=== PATIENT | male | born 1990 | race African-American/Black ===

== ENCOUNTER 2017-12-18 07:25 | Day surgery (SDC) | payer MEDICAID ==
[~2017-12-18] VITALS: Ht 182.9 cm; Wt 111.0 kg
[2017-12-18] VITALS (11 sets, daily range): BP systolic 98–128; BP diastolic 45–86
[~2017-12-18 07:25] MED LIST: Cefazolin 2GM/100ML NS IVPB IV ONE; LIDOcaine 1% (10mg/ml) 2ml vial ONE; METH-350 PO; famotidine 20mg tablet PO ONE; ringers solution, lacted 1,000 ML IV SCH
[2017-12-18 08:19] LABS: BASOPHILS # (AUTO) 0.1 X10'3 (0-0.2); BASOPHILS % (AUTO) 1.4 % (0-1); EOSINOPHILS # (AUTO) 0.2 X10'3 (0-0.9); EOSINOPHILS % (AUTO) 3.1 % (0-6); LYMPHOCYTES # (AUTO) 1.9 X10'3 (1.1-4.8); LYMPHOCYTES % (AUTO) 39.2 % (21-51); MEAN CORPUSCULAR HEMOGLOBIN 30.5 PG (27.0-31.0); MEAN CORPUSCULAR HGB CONC 34.7 % (33.0-36.5); MEAN CORPUSCULAR VOLUME 88.1 FL (78-98); MEAN PLATELET VOLUME 9.1 FL (7.4-10.4); MONOCYTES # (AUTO) 0.5 X10'3 (0-0.9); NEUTROPHILS # (AUTO) 2.3 X10'3 (1.8-7.7); NEUTROPHILS % (AUTO) 46.3 % (42-75); PRE OP HEMATOCRIT 41.5 % (42.0-52.0); PRE OP HEMOGLOBIN 14.4 g/dL (14.0-17.9); PRE OP PLATELET COUNT 211 X10'3 (140-440); RED BLOOD COUNT 4.71 X10'6 (4.70-6.10); RED CELL DISTRIBUTION WIDTH 14.6 % (11.5-14.5)
[2017-12-18] MEDS ORDERED: povidone-iodine 10% topical ointment 28.4gm TP ONE (08:24)
[2017-12-18] MEDS ORDERED: ROPIVAcaine 0.5% (5mg/ml) 30ml vial ONE (08:24)
[2017-12-18 08:32] LABS: ALBUMIN 3.6 G/DL (3.4-5.0); ALBUMIN/GLOBULIN RATIO 1.1 (1.1-1.5); ALKALINE PHOSPHATASE 74 IU/L (46-116); BLOOD UREA NITROGEN 15 MG/DL (7-18); CALCIUM 8.8 MG/DL (8.5-10.1); CHLORIDE 106 MMOL/L (99-107); PRE OP ANION GAP 10 (8-16); PRE OP AST 65 U/L (10-37); PRE OP BILIRUB, TOTAL 0.3 MG/DL (0.0-1.0); PRE OP GLUCOSE 122 MG/DL (70-104); PRE OP POTASSIUM 3.8 MMOL/L (3.4-5.1); PRE OP SODIUM 142 MMOL/L (135-145); TOTAL CARBON DIOXIDE 25.9 MMOL/L (24-32); eGFR > 90 ML/MIN
[2017-12-18 08:34] LABS: PRE OP ALT 82 U/L (30-65)
[2017-12-18] MEDS ORDERED: midazolam 2 mg/2 ml injection ONE (09:42)
[2017-12-18] MEDS ORDERED: fentaNYL /PF 50mcg/ml 5ml ampule ONE (09:42)
[2017-12-18 09:56] LABS: CLARITY,URINE CLEAR (Clear); COLOR,URINE YELLOW (Yellow); GLUCOSE, URINE NEGATIVE (Neg); KETONES,URINE TRACE mg/dl (Neg); LEUKOCYTE ESTERASE ,URINE NEGATIVE (Neg); NITRITES, URINE NEGATIVE (Neg); OCCULT BLOOD,URINE TRACE-INTACT (Neg); PROTEIN,URINE NEGATIVE (Neg)
[2017-12-18 10:01] LABS: UA COLLECTION TYPE CLN CATCH MIDSTREAM
[2017-12-18 10:03] LABS: BACTERIA,URINE NONE SEEN /HPF (Neg); RBC,URINE 0-2 /HPF (0-2); WBC,URINE 0-4 /HPF (0-4)
[2017-12-18 10:04] LABS: MUCUS STRANDS FEW /LPF (Neg); SQUAMOUS EPITHELIAL CELL,UR NONE SEEN /LPF (FEW)
[2017-12-18] MEDS ORDERED: dexamethasone sod phosphate 4mg/ml inj. ONE (10:16)
[2017-12-18] MEDS ORDERED: rocuronium 10mg/ml inj IV ONE ×2 (10:16→11:30)
[2017-12-18] MEDS ORDERED: propofol inj 20 ML IV ONE ×2 (10:16→11:30)
[2017-12-18] MEDS ORDERED: LIDOcaine 2% (20mg/ml) 5ml vial ONE (10:16)
[2017-12-18] MEDS ORDERED: ondansetron/PF 4mg/2ml inj ONE ×2 (10:16→11:30)
[2017-12-18] MEDS ORDERED: methylene blue (5mg/ml) 50mg/10ml ampul IV ONE (10:17)
[2017-12-18] MEDS ORDERED: ringers solution, lacted 1,000 ML IV ONE (10:18)
[2017-12-18] MEDS ORDERED: morphine 4 MG/ML inj SYRINge IV PRN ×2 (10:20)
[2017-12-18] MEDS ORDERED: hydrALAZINE 20mg/ml inj. IV PRN (10:20)
[2017-12-18] MEDS ORDERED: meperidine/PF 25mg/ml syringe IV PRN ×3 (10:20)
[2017-12-18] MEDS ORDERED: ondansetron/PF 4mg/2ml inj IV PRN (10:20)
[2017-12-18] MEDS ORDERED: labetalol 20mg/4ml (5mg/ml) syringe IV PRN (10:20)
[2017-12-18] MEDS ORDERED: neostigmine methylsulfate 1 MG/ML 10ml vial ONE (10:29)
[2017-12-18] MEDS ORDERED: glycopyrrolate 0.2mg/ml inj ONE (10:29)
[2017-12-18] MEDS ORDERED: ePHEDrine 50MG/ML INJ. ONE (11:30)
[2017-12-18] MEDS ORDERED: LIDOcaine 1%/PF (10mg/ml) 5ml vial ONE (11:31)
== END 2017-12-18 12:10 | disposition home or self-care (01) ==
LOC: PAS 07:25
PROVIDERS: ATTEND Surgery
DX: L05.91 Pilonidal cyst without abscess (principal); F90.9 Attention-deficit hyperactivity disorder, unspecified type; F17.210 Nicotine dependence, cigarettes, uncomplicated
CPT/HCPCS: 11771; 36415; 80053; 81001; 85025; A6266; A6449; J0690; J1100; J2001; J2250; J2405; J2704; J2710; J2795; J3010; J3490; J7120; A7000

== ENCOUNTER 2017-12-21 09:00 | Outpatient (CLI) | payer MEDICAID ==
[~2017-12-21 09:00] MED LIST changes: -Cefazolin 2GM/100ML NS IVPB IV ONE; -LIDOcaine 1% (10mg/ml) 2ml vial ONE; -famotidine 20mg tablet PO ONE; -ringers solution, lacted 1,000 ML IV SCH
[2017-12-21] MEDS ORDERED: LIDOcaine 2% 5ml jelly ONE (10:06)
[2017-12-21] MEDS ORDERED: HYDR-3965 PO (10:28)
== END 2017-12-21 10:33 | disposition home or self-care (01) ==
LOC: WOUND CARE 09:00 → EDSTATUS 09:00 → WOUND CARE 10:33
PROVIDERS: ATTEND Surgery
DX: T81.89XA Other complications of procedures, not elsewhere classified, initial encounter (principal); L98.492 Non-pressure chronic ulcer of skin of other sites with fat layer exposed; F98.8 Other specified behavioral and emotional disorders with onset usually occurring in childhood and adolescence; F17.210 Nicotine dependence, cigarettes, uncomplicated; Y83.8 Other surgical procedures as the cause of abnormal reaction of the patient, or of later complication, without mention of misadventure at the time of the procedure
CPT/HCPCS: 99215; A6266

== ENCOUNTER 2017-12-24 10:59 | Outpatient (CLI) | payer MEDICAID ==
[~2017-12-24 10:59] MED LIST changes: +HYDR-3965 PO; -METH-350 PO
[2017-12-24] MEDS ORDERED: LIDOcaine 2% 5ml jelly ONE (11:22)
== END 2017-12-24 11:49 | disposition home or self-care (01) ==
LOC: WOUND CARE 10:59 → EDSTATUS 11:00 → WOUND CARE 11:49
PROVIDERS: ATTEND Surgery
DX: T81.89XD Other complications of procedures, not elsewhere classified, subsequent encounter (principal); L98.492 Non-pressure chronic ulcer of skin of other sites with fat layer exposed; F98.8 Other specified behavioral and emotional disorders with onset usually occurring in childhood and adolescence; F17.210 Nicotine dependence, cigarettes, uncomplicated; Y83.8 Other surgical procedures as the cause of abnormal reaction of the patient, or of later complication, without mention of misadventure at the time of the procedure
CPT/HCPCS: 99215; A6021

== ENCOUNTER 2017-12-27 09:34 | Outpatient (CLI) | payer MEDICAID ==
[2017-12-27] MEDS: LIDOcaine 2% 5ml jelly ONE (10:12)
== END 2017-12-27 10:51 | disposition home or self-care (01) ==
LOC: WOUND CARE 09:34
PROVIDERS: ATTEND Surgery
DX: T81.89XD Other complications of procedures, not elsewhere classified, subsequent encounter (principal); L98.492 Non-pressure chronic ulcer of skin of other sites with fat layer exposed; F98.8 Other specified behavioral and emotional disorders with onset usually occurring in childhood and adolescence; F17.210 Nicotine dependence, cigarettes, uncomplicated; Y83.8 Other surgical procedures as the cause of abnormal reaction of the patient, or of later complication, without mention of misadventure at the time of the procedure
CPT/HCPCS: 99211; A6266

== ENCOUNTER 2017-12-31 08:35 | Day surgery (SDC) | payer MEDICAID | END 2017-12-31 10:15 | disposition home or self-care (01) | LOC: WOUND CARE 08:35 | PROVIDERS: ATTEND Surgery | DX: T81.89XD Other complications of procedures, not elsewhere classified, subsequent encounter (principal); L98.492 Non-pressure chronic ulcer of skin of other sites with fat layer exposed; F98.8 Other specified behavioral and emotional disorders with onset usually occurring in childhood and adolescence; F17.210 Nicotine dependence, cigarettes, uncomplicated; Y83.8 Other surgical procedures as the cause of abnormal reaction of the patient, or of later complication, without mention of misadventure at the time of the procedure | CPT/HCPCS: 97597; A6021 ==

== ENCOUNTER 2018-01-10 10:05 | Day surgery (SDC) | payer MEDICAID ==
[2018-01-10] MEDS ORDERED: LIDOcaine 2% 5ml jelly ONE (11:01)
== END 2018-01-10 11:13 | disposition home or self-care (01) ==
LOC: WOUND CARE 10:05
PROVIDERS: ATTEND Surgery
DX: T81.89XD Other complications of procedures, not elsewhere classified, subsequent encounter (principal); L98.492 Non-pressure chronic ulcer of skin of other sites with fat layer exposed; F98.8 Other specified behavioral and emotional disorders with onset usually occurring in childhood and adolescence; F17.210 Nicotine dependence, cigarettes, uncomplicated; Y83.8 Other surgical procedures as the cause of abnormal reaction of the patient, or of later complication, without mention of misadventure at the time of the procedure
CPT/HCPCS: 17250; A6021

== ENCOUNTER 2018-04-05 20:49 | Emergency (ER) | payer MEDICAID ==
[~2018-04-05] VITALS: Ht 182.9 cm; Wt 113.9 kg
[2018-04-05 20:56] VITALS: BP 108/34
== END 2018-04-05 22:32 | disposition left against medical advice (07) ==
LOC: ER 20:49
DX: R20.0 Anesthesia of skin (principal); Z53.21 Procedure and treatment not carried out due to patient leaving prior to being seen by health care provider
CPT/HCPCS: 73130

== ENCOUNTER 2018-04-06 12:33 | Emergency (ER) | payer MEDICAID ==
[~2018-04-06] VITALS: Ht 647.4 cm; Wt 115.3 kg
[2018-04-06 12:36] VITALS: BP 113/66
== END 2018-04-06 13:20 | disposition home or self-care (01) ==
LOC: ER 12:34
DX: G56.01 Carpal tunnel syndrome, right upper limb (principal); G89.29 Other chronic pain; M54.9 Dorsalgia, unspecified
CPT/HCPCS: 29125; 99283

== ENCOUNTER 2018-12-29 21:39 | Emergency (ER) | payer MEDICAID ==
[~2018-12-29] VITALS: Ht 182.9 cm; Wt 115.0 kg
[2018-12-29 21:58] VITALS: BP 153/114
[2018-12-29] MEDS ORDERED: CEPH500C5 PO (22:42)
[2018-12-29] MEDS ORDERED: cephalexin 250mg capsule PO ONE (22:45)
== END 2018-12-29 22:55 | disposition home or self-care (01) ==
LOC: ER 21:40
DX: S61.201A Unspecified open wound of left index finger without damage to nail, initial encounter (principal); L03.012 Cellulitis of left finger; G89.29 Other chronic pain; Z88.0 Allergy status to penicillin; Z88.8 Allergy status to other drugs, medicaments and biological substances; Z79.899 Other long term (current) drug therapy; X58.XXXA Exposure to other specified factors, initial encounter; Y93.89 Activity, other specified; Y92.89 Other specified places as the place of occurrence of the external cause; Y99.8 Other external cause status
CPT/HCPCS: 99283

== ENCOUNTER 2019-01-29 22:05 | Emergency (ER) | payer MEDICAID ==
[~2019-01-29 22:05] MED LIST changes: +CEPH500C5 PO
== END 2019-01-29 23:07 | disposition left against medical advice (07) ==
LOC: ER 22:06
DX: M25.559 Pain in unspecified hip (principal); Z53.21 Procedure and treatment not carried out due to patient leaving prior to being seen by health care provider

== ENCOUNTER 2019-02-01 08:54 | Emergency (ER) | payer MEDICAID ==
[~2019-02-01] VITALS: Ht 190.5 cm; Wt 110.9 kg
[2019-02-01] MEDS ORDERED: ketorolac trometh inj. 60 MG/2 ML VIAL IM ONE (09:25)
[2019-02-01] MEDS ORDERED: CYCL-1 PO (10:03)
[2019-02-01 10:25] VITALS: BP 114/84
== END 2019-02-01 10:27 | disposition home or self-care (01) ==
LOC: ER 08:54
DX: M25.551 Pain in right hip (principal); G89.29 Other chronic pain; F10.99 Alcohol use, unspecified with unspecified alcohol-induced disorder; Z88.0 Allergy status to penicillin; Z88.8 Allergy status to other drugs, medicaments and biological substances; Z79.899 Other long term (current) drug therapy; Y90.9 Presence of alcohol in blood, level not specified
CPT/HCPCS: 73502; 96372; 99283; J1885

== ENCOUNTER 2019-02-05 05:25 | Emergency (ER) | payer MEDICAID ==
[~2019-02-05] VITALS: Ht 182.9 cm; Wt 110.0 kg
[~2019-02-05 05:25] MED LIST changes: +CYCL-1 PO
[2019-02-05 05:29] VITALS: BP 138/91
[2019-02-05] MEDS ORDERED: ACET-2615 PO (05:40)
[2019-02-05] MEDS ORDERED: ketorolac trometh inj. 60 MG/2 ML VIAL IM ONE (05:40)
[2019-02-05] MEDS ORDERED: acetaminophen 325mg tablet PO ONE (05:40)
[2019-02-05] MEDS ORDERED: IBUP-1985 PO (05:40)
== END 2019-02-05 05:52 | disposition home or self-care (01) ==
LOC: ER 05:25
DX: M54.5 Low back pain (principal); G89.29 Other chronic pain; Z88.0 Allergy status to penicillin; Z88.8 Allergy status to other drugs, medicaments and biological substances; Z79.899 Other long term (current) drug therapy
CPT/HCPCS: 96372; 99283; J1885

== ENCOUNTER 2019-06-01 04:09 | Emergency (ER) | payer MEDICAID ==
[~2019-06-01] VITALS: Ht 182.9 cm; Wt 115.7 kg
[~2019-06-01 04:09] MED LIST changes: +IBUP-1985 PO
[2019-06-01 04:14] VITALS: BP 140/98
[2019-06-01] MEDS ORDERED: TETanus/Pertussis (Acell)/Diphther VAC/PF (Tdap-Adult) 0.5ml syringe IMVAC ONE (04:40)
[2019-06-01] MEDS ORDERED: AMOX-580 PO (04:43)
== END 2019-06-01 05:05 | disposition home or self-care (01) ==
LOC: ER 04:10
DX: S01.412A Laceration without foreign body of left cheek and temporomandibular area, initial encounter (principal); F17.200 Nicotine dependence, unspecified, uncomplicated; Z88.0 Allergy status to penicillin; Z88.6 Allergy status to analgesic agent; Z79.899 Other long term (current) drug therapy; W54.0XXA Bitten by dog, initial encounter; Y93.89 Activity, other specified; Y92.89 Other specified places as the place of occurrence of the external cause; Y99.9 Unspecified external cause status
CPT/HCPCS: 90471; 99283

== ENCOUNTER 2019-08-19 09:14 | Emergency (ER) | payer MEDICAID ==
[~2019-08-19] VITALS: Ht 182.9 cm; Wt 114.0 kg
[2019-08-19 10:25] LABS: BASOPHILS % (AUTO) 0.5 % (0-1); EOSINOPHILS # (AUTO) 0.1 X10'3 (0-0.9); HEMATOCRIT 43.3 % (42.0-52.0); HEMOGLOBIN 14.5 g/dl (14.0-17.9); LYMPHOCYTES # (AUTO) 2.2 X10'3 (1.1-4.8); LYMPHOCYTES % (AUTO) 41.5 % (21-51); MEAN CORPUSCULAR HEMOGLOBIN 29.7 PG (27.0-31.0); MEAN CORPUSCULAR HGB CONC 33.4 g/dL (33.0-36.5); MEAN CORPUSCULAR VOLUME 88.9 FL (78-98); MEAN PLATELET VOLUME 8.3 FL (7.4-10.4); MONOCYTES # (AUTO) 0.6 X10'3 (0-0.9); MONOCYTES % (AUTO) 10.8 % (2-12); NEUTROPHILS # (AUTO) 2.3 X10'3 (1.8-7.7); NEUTROPHILS % (AUTO) 45.2 % (42-75); PLATELET COUNT 231 X10'3 (140-440); RED BLOOD COUNT 4.88 X10'6 (4.70-6.10); RED CELL DISTRIBUTION WIDTH 14.4 % (11.5-14.5); WHITE BLOOD COUNT 5.2 X10'3 (4.5-11.0)
[2019-08-19 10:30] LABS: CLARITY,URINE SLIGHTLY CLOUDY (Clear); COLOR,URINE YELLOW (Yellow); GLUCOSE, URINE NEGATIVE (Neg); KETONES,URINE NEGATIVE (Neg); LEUKOCYTE ESTERASE ,URINE NEGATIVE (Neg); NITRITES, URINE NEGATIVE (Neg); OCCULT BLOOD,URINE NEGATIVE (Neg); PROTEIN,URINE TRACE mg/dl (Neg); UROBILINOGEN,URINE 0.2 E.U/dL (0.2-1.0)
[2019-08-19 10:33] LABS: UA COLLECTION TYPE URINAL
[2019-08-19 10:38] LABS: BACTERIA,URINE FEW /HPF (Neg); MUCUS STRANDS MANY /LPF (Neg); RBC,URINE 0-2 /HPF (0-2); SQUAMOUS EPITHELIAL CELL,UR FEW /LPF (FEW); WBC,URINE 0-4 /HPF (0-4)
[2019-08-19 10:44] LABS: ALANINE AMINOTRANSFERASE 32 U/L (12-78); ALBUMIN 4.2 G/DL (3.4-5.0); ALBUMIN/GLOBULIN RATIO 1.3 (1.1-1.5); ALKALINE PHOSPHATASE 69 IU/L (46-116); ANION GAP 5 (8-16); ASPARTATE AMINO TRANSFERASE 26 U/L (10-37); BILIRUBIN,TOTAL 0.4 MG/DL (0.1-1.0); BLOOD UREA NITROGEN 10 MG/DL (7-18); BUN/CREATININE RATIO 8.8 (5.4-32.0); CALCIUM 9.2 MG/DL (8.5-10.1); CHLORIDE 106 MMOL/L (99-107); CREATININE 1.13 MG/DL (0.60-1.10); ETHANOL < 0.010 GM/DL (0.0-0.010); GLUCOSE 66 MG/DL (70-104); POTASSIUM 3.7 MMOL/L (3.5-5.1); SODIUM 141 MMOL/L (135-145); TOTAL PROTEIN 7.5 G/DL (6.4-8.2); eGFR > 90 ML/MIN
[2019-08-19 10:47] LABS: URINE AMPHETAMINE SCREEN POSITIVE (Neg); URINE BARBITUATE SCREEN NEGATIVE (Neg); URINE BENZODIAZEPINES SCREEN POSITIVE (Neg); URINE CANNABINOID SCREEN POSITIVE (Neg); URINE COCAINE SCREEN POSITIVE (Neg); URINE METHADONE SCREEN NEGATIVE (Neg); URINE OPIATE SCREEN NEGATIVE (Neg); URINE PHENCYCLIDINE SCREEN NEGATIVE (Neg)
[2019-08-19 11:32] VITALS: BP 143/67
== END 2019-08-19 11:35 | disposition home or self-care (01) ==
LOC: ER 09:15
DX: F19.10 Other psychoactive substance abuse, uncomplicated (principal); R40.0 Somnolence; F17.210 Nicotine dependence, cigarettes, uncomplicated; F15.90 Other stimulant use, unspecified, uncomplicated; G89.29 Other chronic pain; F10.99 Alcohol use, unspecified with unspecified alcohol-induced disorder; Z79.899 Other long term (current) drug therapy; Z88.0 Allergy status to penicillin; Z88.8 Allergy status to other drugs, medicaments and biological substances; Y90.9 Presence of alcohol in blood, level not specified
CPT/HCPCS: 36415; 80053; 80305; 80320; 81001; 85025; 93005; 99284; 99406

== ENCOUNTER 2019-09-09 18:58 | Emergency (ER) | payer MEDICAID ==
[~2019-09-09] VITALS: Ht 180.3 cm; Wt 100.0 kg
[2019-09-09 19:07] VITALS: BP 139/75
== END 2019-09-09 21:46 | disposition left against medical advice (07) ==
LOC: ER 18:59
DX: R05 Cough (principal); R50.9 Fever, unspecified; R09.89 Other specified symptoms and signs involving the circulatory and respiratory systems; Z53.21 Procedure and treatment not carried out due to patient leaving prior to being seen by health care provider

== ENCOUNTER 2019-12-03 22:06 | Emergency (ER) | payer MEDICAID ==
[~2019-12-03] VITALS: Ht 182.9 cm; Wt 110.5 kg
[2019-12-03 22:22] VITALS: BP 138/72
== END 2019-12-03 23:18 | disposition home or self-care (01) ==
LOC: ER 22:07
DX: R20.0 Anesthesia of skin (principal); R20.2 Paresthesia of skin; M79.641 Pain in right hand; G89.29 Other chronic pain; F17.200 Nicotine dependence, unspecified, uncomplicated; F15.90 Other stimulant use, unspecified, uncomplicated; Z72.89 Other problems related to lifestyle; Z88.0 Allergy status to penicillin; Z88.8 Allergy status to other drugs, medicaments and biological substances; Z79.2 Long term (current) use of antibiotics; Z79.899 Other long term (current) drug therapy
CPT/HCPCS: 29125; 99283

== ENCOUNTER 2020-03-08 11:44 | Inpatient (IN) | payer MEDICAID ==
[~2020-03-08] VITALS: Ht 182.9 cm; Wt 110.5 kg
[~2020-03-08 11:44] MED LIST changes: -CEPH500C5 PO; +LEVO750T21 PO
[2020-03-08] MEDS ORDERED: morphine 4 MG/ML inj SYRINge IM ONE (12:35)
[2020-03-08] MEDS ORDERED: ondansetron 4mg rapidly disintigrating tab PO ONE (12:35)
[2020-03-08] MEDS ORDERED: normal saline 1000ml 1,000 ML IV ONE (12:35)
[2020-03-08] MEDS ORDERED: iohexol 300mg/ml 100ml inj. ONE (13:01)
[2020-03-08 13:03] LABS: BASOPHILS % (AUTO) 0.6 % (0-1); EOSINOPHILS # (AUTO) 0.1 X10'3 (0-0.9); EOSINOPHILS % (AUTO) 1.6 % (0-6); HEMATOCRIT 41.2 % (42.0-52.0); HEMOGLOBIN 13.7 g/dl (14.0-17.9); LYMPHOCYTES # (AUTO) 1.5 X10'3 (1.1-4.8); MEAN CORPUSCULAR HEMOGLOBIN 30.3 PG (27.0-31.0); MEAN CORPUSCULAR HGB CONC 33.2 g/dL (33.0-36.5); MEAN CORPUSCULAR VOLUME 91.2 FL (78-98); MEAN PLATELET VOLUME 8.5 FL (7.4-10.4); MONOCYTES # (AUTO) 1.2 X10'3 (0-0.9); MONOCYTES % (AUTO) 14.5 % (2-12); NEUTROPHILS # (AUTO) 5.2 X10'3 (1.8-7.7); NEUTROPHILS % (AUTO) 64.3 % (42-75); PLATELET COUNT 206 X10'3 (140-440); RED BLOOD COUNT 4.52 X10'6 (4.70-6.10); RED CELL DISTRIBUTION WIDTH 14.6 % (11.5-14.5); WHITE BLOOD COUNT 8.1 X10'3 (4.5-11.0)
[2020-03-08 13:19] LABS: ALANINE AMINOTRANSFERASE 30 U/L (12-78); ALBUMIN 3.3 G/DL (3.4-5.0); ALKALINE PHOSPHATASE 70 IU/L (46-116); ANION GAP 5 (8-16); ASPARTATE AMINO TRANSFERASE 20 U/L (10-37); BILIRUBIN,TOTAL 0.2 MG/DL (0.1-1.0); BLOOD UREA NITROGEN 6 MG/DL (7-18); C-REACTIVE PROTEIN 3.57 MG/DL (0.0-0.5); CALCIUM 8.5 MG/DL (8.5-10.1); CHLORIDE 105 MMOL/L (99-107); GLUCOSE 88 MG/DL (70-104); POTASSIUM 3.6 MMOL/L (3.5-5.1); SODIUM 139 MMOL/L (135-145); TOTAL PROTEIN 6.6 G/DL (6.4-8.2); eGFR > 90 ML/MIN
--- NOTE | 2020-03-08 13:37 | NUR ---
pt returned from ct, reconnected to ns bolus and vs updated
[2020-03-08] MEDS ORDERED: LIDOcaine 1% W/epiNEPHrine 1:100,000 20ml vial SQ ONE (14:30)
[2020-03-08] MEDS ORDERED: HYDROcodone/acetaminophen 10/325mg tab PO ONE (14:30)
--- NOTE | 2020-03-08 14:49 | NUR ---
pt complaining of pain 10/, when entering the room pt is speeling and appears to be in no distress
[2020-03-08] MEDS ORDERED: HYDR-4353 PO (15:05)
[2020-03-08] MEDS ORDERED: metoclopramide 5 mg/ml inj IV PRN (15:35)
[2020-03-08] MEDS ORDERED: HYDROcodone/acetaminophen 5mg/325mg tablet PO PRN (15:35)
[2020-03-08] MEDS ORDERED: magnesium Cl slow-release 64mg tablet PO PRN (15:35)
[2020-03-08] MEDS ORDERED: CefTRIAXone 2gm/D5W 50ml 50 ML IV ONE (15:35)
[2020-03-08] MEDS ORDERED: potassium CL 10mEq/100ml bag 100 ML IV PRN ×2 (15:35)
[2020-03-08] MEDS ORDERED: acetaminophen 325mg tablet PO PRN ×2 (15:35)
[2020-03-08] MEDS ORDERED: acetaminophen 650mg rectal suppository RC PRN (15:35)
[2020-03-08] MEDS ORDERED: mag hydrox/Alum hydrox/simeth 30ml oral suspension PO PRN (15:35)
[2020-03-08] MEDS ORDERED: magnesium 4gm in 100ml NS 100 ML IV PRN (15:35)
[2020-03-08] MEDS ORDERED: magnesium 2GM in 50ml NS 50 ML IV PRN (15:35)
[2020-03-08] MEDS ORDERED: magnesium hydroxide 30ml (MOM) UD suspension PO PRN (15:35)
[2020-03-08] MEDS ORDERED: ondansetron/PF 4mg/2ml inj IV PRN (15:35)
[2020-03-08] MEDS ORDERED: potassium Cl 20 mEq SR tablet PO PRN ×2 (15:35)
[2020-03-08] MEDS ORDERED: MULT-227 PO (15:42)
[2020-03-08] MEDS ORDERED: CLON-372 PO (15:42)
[2020-03-08] MEDS: normal saline 1000ml 1,000 ML IV SCH (15:53)
--- NOTE | 2020-03-08 16:28 | NUR ---
tried to call report rn on break she will call back
[2020-03-08] MEDS: nicotine 14mg patch - 24hr TD SCH (16:42)
[2020-03-08 17:10] VITALS: BP 135/82
[2020-03-08] MEDS: HYDROcodone/acetaminophen 10/325mg tab PO PRN (17:39)
--- NOTE | 2020-03-08 18:50 | NUR ---
GAVE REPORT TO Shadi HERRERA.
[2020-03-08] MEDS: HYDROmorphone inj. 0.5 MG/0.5 ML DISP.SYRIN IV PRN (18:53)
[2020-03-08 19:56] VITALS: BP 137/78
[2020-03-08] MEDS: K and/or MAG REPLACEMENT MC SCH (20:00)
[2020-03-08] MEDS ORDERED: temazepam 15mg capsule PO PRN (21:00)
[2020-03-08] MEDS: clonazePAM 1mg tablet PO SCH (21:26)
[2020-03-09] VITALS (18 sets, daily range): BP systolic 109–148; BP diastolic 44–93
[2020-03-09] MEDS: VANCOMYCIN 1,500MG inj. 1,500 MG in normal saline 500ml IV soln 300 ML IV SCH ×2 (00:43→09:16)
[2020-03-09] MEDS: HYDROcodone/acetaminophen 10/325mg tab PO PRN ×2 (01:04→07:30)
[2020-03-09] MEDS: normal saline 1000ml 1,000 ML IV SCH ×3 (03:52→21:35)
[2020-03-09] MEDS: HYDROmorphone inj. 0.5 MG/0.5 ML DISP.SYRIN IV PRN ×2 (05:08→11:26)
[2020-03-09 06:09] LABS: BASOPHILS % (AUTO) 0.3 % (0-1); EOSINOPHILS # (AUTO) 0.1 X10'3 (0-0.9); EOSINOPHILS % (AUTO) 1.2 % (0-6); HEMATOCRIT 40.6 % (42.0-52.0); HEMOGLOBIN 13.3 g/dl (14.0-17.9); LYMPHOCYTES # (AUTO) 1.8 X10'3 (1.1-4.8); LYMPHOCYTES % (AUTO) 21.2 % (21-51); MEAN CORPUSCULAR HEMOGLOBIN 30.3 PG (27.0-31.0); MEAN CORPUSCULAR HGB CONC 32.9 g/dL (33.0-36.5); MEAN PLATELET VOLUME 9.1 FL (7.4-10.4); MONOCYTES # (AUTO) 1.1 X10'3 (0-0.9); MONOCYTES % (AUTO) 13.4 % (2-12); NEUTROPHILS # (AUTO) 5.4 X10'3 (1.8-7.7); NEUTROPHILS % (AUTO) 63.9 % (42-75); PLATELET COUNT 222 X10'3 (140-440); RED BLOOD COUNT 4.41 X10'6 (4.70-6.10); RED CELL DISTRIBUTION WIDTH 14.9 % (11.5-14.5); WHITE BLOOD COUNT 8.5 X10'3 (4.5-11.0)
[2020-03-09 06:40] LABS: ALANINE AMINOTRANSFERASE 31 U/L (12-78); ALBUMIN/GLOBULIN RATIO 0.9 (1.1-1.5); ALKALINE PHOSPHATASE 63 IU/L (46-116); ANION GAP 7 (8-16); ASPARTATE AMINO TRANSFERASE 17 U/L (10-37); BILIRUBIN,TOTAL 0.3 MG/DL (0.1-1.0); BLOOD UREA NITROGEN 7 MG/DL (7-18); BUN/CREATININE RATIO 7.1 (5.4-32.0); CHLORIDE 105 MMOL/L (99-107); CREATININE 0.98 MG/DL (0.60-1.10); GLUCOSE 101 MG/DL (70-104); MAGNESIUM 1.8 MG/DL (1.5-2.4); POTASSIUM 4.3 MMOL/L (3.5-5.1); SODIUM 139 MMOL/L (135-145); TOTAL CARBON DIOXIDE 27.1 MMOL/L (24-32); TOTAL PROTEIN 6.5 G/DL (6.4-8.2); eGFR > 90 ML/MIN
--- NOTE | 2020-03-09 06:58 | NUR ---
Patient in room [facility]. I have received report from Jose Raul HERRERA and had the opportunity to ask questions and assume patient care.
[2020-03-09] MEDS: enoxaparin 40mg/0.4ml syringe SUBCUT SCH (07:23)
[2020-03-09] MEDS: CefTRIAXone/D5W-Rocephin 1gm 50 ML IV SCH (07:31)
[2020-03-09] MEDS: nicotine 14mg patch - 24hr TD SCH (07:38)
[2020-03-09] MEDS: K and/or MAG REPLACEMENT MC SCH ×2 (08:00→20:00)
[2020-03-09] MEDS ORDERED: oxyCODONE/APAP 5-325mg tablet PO PRN (12:45)
[2020-03-09] MEDS ORDERED: HYDROmorphone inj. 0.5 MG/0.5 ML DISP.SYRIN IV PRN (12:45)
[2020-03-09] MEDS ORDERED: HYDROmorphone 1 mg/ml syringe IV PRN (12:45)
[2020-03-09] MEDS ORDERED: dibucaine ointment 28gm RC ONE (12:57)
[2020-03-09] MEDS ORDERED: LIDOcaine 1% w/epiNEPHrine 1:200,000 30ml vial ONE (12:57)
[2020-03-09] MEDS ORDERED: ringers solution, lacted 1,000 ML IV SCH (12:58)
[2020-03-09] MEDS ORDERED: labetalol 20mg/4ml (5mg/ml) syringe IV PRN (13:00)
[2020-03-09] MEDS ORDERED: morphine 4 MG/ML inj SYRINge IV PRN (13:00)
[2020-03-09] MEDS ORDERED: meperidine/PF 25mg/ml syringe IV PRN ×2 (13:00)
[2020-03-09] MEDS ORDERED: ondansetron/PF 4mg/2ml inj IV PRN (13:00)
[2020-03-09] MEDS ORDERED: morphine 2 MG/ML inj. syringe IV PRN (13:00)
[2020-03-09] MEDS ORDERED: hydrALAZINE 20mg/ml inj. IV PRN (13:00)
[2020-03-09] MEDS ORDERED: midazolam 2 mg/2 ml injection ONE (13:03)
[2020-03-09] MEDS ORDERED: morphine 10mg/ml inj. ONE ×2 (13:03)
[2020-03-09] MEDS ORDERED: propofol inj 20 ML IV ONE (13:05)
[2020-03-09] MEDS ORDERED: LIDOcaine 2% (20mg/ml) 5ml vial ONE (13:05)
--- NOTE | 2020-03-09 13:06 | NUR ---
Patient just picked up for the OR, report has been called to recovery.
[2020-03-09] MEDS ORDERED: sevoflurane 250ml liquid IH ONE (13:16)
[2020-03-09] MEDS ORDERED: ondansetron/PF 4mg/2ml inj ONE (13:26)
[2020-03-09] MEDS ORDERED: dexamethasone sod phosphate 4mg/ml inj. ONE (13:27)
--- NOTE | 2020-03-09 13:51 | NUR ---
Received from OR via BED, accompanied by Anesthesiologist DR COMBS and report given by Anesthesiologist. PT DROWSY, DENIES PAIN, PERIANAL AREA W/SMALL AMT OF PACKING IN WOUND, 4X4'S COVERING W/MESH UNDERWARE ON. PT DENIES PAIN. Addendum: 03/09/20 at 1432 by Trudy Toledo RN Amended: Links added.
--- NOTE | 2020-03-09 14:36 | NUR ---
Received patient report from recovery room nurse Trudy HERRERA. Awaiting arrival back to room 360B.
--- NOTE | 2020-03-09 14:51 | NUR ---
Report called to receiving nurse. Transferred via BED, NO Belongings, RECEIVING RN AT BEDSIDE TO RECEIVE PT, BLL, CALL LIGHT GIVEN TO PT, SIDE RAILS UP X 2. Special Issues communicated to receiving nurse. YES. Addendum: 03/09/20 at 1528 by Trudy Toledo RN Amended: Links added.
[2020-03-09] MEDS ORDERED: VANCOMYCIN LEVEL IV ONE (15:30)
--- NOTE | 2020-03-09 17:02 | NUR ---
PAGER ID: [phone] MESSAGE: Sunny [facility] 360b Re: Eliel Patient had a critical vancomycin trough at 23.9. Thanks Sunny.
--- NOTE | 2020-03-09 18:10 | NUR ---
Problems reprioritized. Patient report given, questions answered & plan of care reviewed with Jose Raul HERRERA.
[2020-03-09] MEDS: oxyCODONE/APAP 10/325mg tablet PO PRN ×2 (18:40→22:45)
[2020-03-09] MEDS: VANCOmycin 1250MG/NS 250ml Bag 250 ML IV SCH (19:47)
[2020-03-09] MEDS: clonazePAM 1mg tablet PO SCH (22:45)
[2020-03-10] VITALS: BP 137/62
[2020-03-10] MEDS: oxyCODONE/APAP 10/325mg tablet PO PRN ×5 (02:34→22:49)
[2020-03-10] MEDS: VANCOmycin 1250MG/NS 250ml Bag 250 ML IV SCH ×3 (02:42→19:07)
[2020-03-10 05:16] LABS: BASOPHILS % (AUTO) 0.3 % (0-1); EOSINOPHILS % (AUTO) 0 % (0-6); HEMOGLOBIN 12.3 g/dl (14.0-17.9); LYMPHOCYTES # (AUTO) 0.8 X10'3 (1.1-4.8); LYMPHOCYTES % (AUTO) 5.6 % (21-51); MEAN CORPUSCULAR HEMOGLOBIN 29.6 PG (27.0-31.0); MEAN CORPUSCULAR HGB CONC 32.4 g/dL (33.0-36.5); MEAN CORPUSCULAR VOLUME 91.4 FL (78-98); MEAN PLATELET VOLUME 9.2 FL (7.4-10.4); MONOCYTES # (AUTO) 1.1 X10'3 (0-0.9); MONOCYTES % (AUTO) 8.3 % (2-12); NEUTROPHILS # (AUTO) 11.8 X10'3 (1.8-7.7); NEUTROPHILS % (AUTO) 85.8 % (42-75); PLATELET COUNT 231 X10'3 (140-440); RED BLOOD COUNT 4.15 X10'6 (4.70-6.10); RED CELL DISTRIBUTION WIDTH 14.6 % (11.5-14.5); WHITE BLOOD COUNT 13.8 X10'3 (4.5-11.0)
[2020-03-10 05:36] LABS: ALANINE AMINOTRANSFERASE 26 U/L (12-78); ALBUMIN 2.9 G/DL (3.4-5.0); ALBUMIN/GLOBULIN RATIO 0.8 (1.1-1.5); ALKALINE PHOSPHATASE 58 IU/L (46-116); ANION GAP 7 (8-16); ASPARTATE AMINO TRANSFERASE 18 U/L (10-37); BILIRUBIN,TOTAL 0.2 MG/DL (0.1-1.0); BLOOD UREA NITROGEN 9 MG/DL (7-18); BUN/CREATININE RATIO 8.7 (5.4-32.0); CALCIUM 8.7 MG/DL (8.5-10.1); CHLORIDE 103 MMOL/L (99-107); CREATININE 1.04 MG/DL (0.60-1.10); GLUCOSE 285 MG/DL (70-104); MAGNESIUM 1.9 MG/DL (1.5-2.4); SODIUM 137 MMOL/L (135-145); TOTAL CARBON DIOXIDE 27.5 MMOL/L (24-32); TOTAL PROTEIN 6.4 G/DL (6.4-8.2); eGFR > 90 ML/MIN
--- NOTE | 2020-03-10 06:52 | NUR ---
Patient in room [facility]. I have received report from Jose Raul HERRERA and had the opportunity to ask questions and assume patient care.
[2020-03-10 07:00] VITALS: BP 119/54
[2020-03-10] MEDS: normal saline 1000ml 1,000 ML IV SCH ×2 (07:35→15:15)
[2020-03-10] MEDS: K and/or MAG REPLACEMENT MC SCH ×2 (08:00→19:07)
[2020-03-10] MEDS: enoxaparin 40mg/0.4ml syringe SUBCUT SCH (08:00)
[2020-03-10] MEDS: CefTRIAXone/D5W-Rocephin 1gm 50 ML IV SCH (08:01)
[2020-03-10] MEDS: nicotine 14mg patch - 24hr TD SCH (08:02)
--- NOTE | 2020-03-10 09:00 | NUR ---
Surgical wound dressing reinforced with wet to dry dressing, packing intact. Patient tolerated the procedure
[2020-03-10 11:00] VITALS: BP 126/64
--- NOTE | 2020-03-10 12:23 | NUR ---
PAGER ID: [phone] MESSAGE: Surgical Luna Walters RN ext [phone]. RE: Jonas Julian. Patient serum glucose this am was 285 mg/dl and random capillary glucose is 273 mg/dl, no history of diabetes. Can we get order for A1c?
[2020-03-10] MEDS ORDERED: MESSAGE TO PHARMACY PO ONE (12:55)
[2020-03-10] MEDS ORDERED: dextrose 50%-water 50ml dispensing syringe IV PRN ×2 (12:55)
[2020-03-10] MEDS ORDERED: insulin Lispro (HumaLOG) vial - multi-dose SQ SCH (12:55)
[2020-03-10] MEDS ORDERED: glucagon, human recombinant 1mg kit SUBCUT PRN (12:55)
[2020-03-10] MEDS ORDERED: dextrose ORAL solution 15 GM/59 ML bottle PO PRN ×2 (12:55)
--- NOTE | 2020-03-10 14:57 | NUR ---
Patient has been asking repeatedly about going home today, I told him that Dr. Rogers has not given us an order for him to home yet and that he also has hospitalist doctor that needs to clear him to be discharged. At earlier time, patient had asked me if he can go outside, I told him he cannot go outside, he can walk within this unit only and that if he leave the building that will be considered AMA which I did not recommend. Patient verbalized understanding of this
[2020-03-10] MEDS ORDERED: VANCOMYCIN LEVEL IV ONE (18:30)
--- NOTE | 2020-03-10 18:30 | NUR ---
Received report from primary care nurse Selena HERRERA. Assumed patient care with Abena HERRERA. Patient is awake and alert on room air. In no apparent distress call light and items of frequent use within reach. Will continue to monitor for changes.
--- NOTE | 2020-03-10 18:39 | NUR ---
Problems reprioritized. Patient report given, questions answered & plan of care reviewed with Cait HERRERA.
--- NOTE | 2020-03-10 18:44 | NUR ---
Patient in room [facility]. I have received report from Selena HERRERA and had the opportunity to ask questions and assume patient care.
[2020-03-10] MEDS: lactobacillus rhamnosus 10,000 MMU CELLS/CAPSULE PO SCH (19:07)
[2020-03-10 19:38] VITALS: BP 147/76
[2020-03-10] MEDS ORDERED: insulin glargine (Lantus) pen - multi-dose SQ SCH (21:00)
[2020-03-10] MEDS: clonazePAM 1mg tablet PO SCH (21:02)
[2020-03-11 00:25] VITALS: BP 143/83
[2020-03-11] MEDS: oxyCODONE/APAP 10/325mg tablet PO PRN (02:49)
[2020-03-11] MEDS: VANCOmycin 1250MG/NS 250ml Bag 250 ML IV SCH (02:49)
[2020-03-11] MEDS: normal saline 1000ml 1,000 ML IV SCH (02:57)
[2020-03-11 05:15] LABS: ALANINE AMINOTRANSFERASE 43 U/L (12-78); ALBUMIN 2.8 G/DL (3.4-5.0); ALBUMIN/GLOBULIN RATIO 0.9 (1.1-1.5); ALKALINE PHOSPHATASE 51 IU/L (46-116); ANION GAP 4 (8-16); ASPARTATE AMINO TRANSFERASE 31 U/L (10-37); BILIRUBIN,TOTAL 0.2 MG/DL (0.1-1.0); BLOOD UREA NITROGEN 8 MG/DL (7-18); BUN/CREATININE RATIO 9.3 (5.4-32.0); CALCIUM 8.1 MG/DL (8.5-10.1); CHLORIDE 107 MMOL/L (99-107); CREATININE 0.86 MG/DL (0.60-1.10); GLUCOSE 103 MG/DL (70-104); MAGNESIUM 1.9 MG/DL (1.5-2.4); POTASSIUM 4.1 MMOL/L (3.5-5.1); SODIUM 140 MMOL/L (135-145); TOTAL CARBON DIOXIDE 29.5 MMOL/L (24-32); TOTAL PROTEIN 5.9 G/DL (6.4-8.2); eGFR > 90 ML/MIN
[2020-03-11 05:23] LABS: BASOPHILS # (AUTO) 0.1 X10'3 (0-0.2); BASOPHILS % (AUTO) 0.5 % (0-1); EOSINOPHILS # (AUTO) 0.1 X10'3 (0-0.9); EOSINOPHILS % (AUTO) 0.6 % (0-6); HEMATOCRIT 36.6 % (42.0-52.0); HEMOGLOBIN 11.9 g/dl (14.0-17.9); LYMPHOCYTES # (AUTO) 2.6 X10'3 (1.1-4.8); LYMPHOCYTES % (AUTO) 21.3 % (21-51); MEAN CORPUSCULAR HEMOGLOBIN 29.9 PG (27.0-31.0); MEAN CORPUSCULAR HGB CONC 32.4 g/dL (33.0-36.5); MEAN CORPUSCULAR VOLUME 92.4 FL (78-98); MEAN PLATELET VOLUME 8.9 FL (7.4-10.4); NEUTROPHILS # (AUTO) 8.5 X10'3 (1.8-7.7); NEUTROPHILS % (AUTO) 69.6 % (42-75); PLATELET COUNT 233 X10'3 (140-440); RED BLOOD COUNT 3.97 X10'6 (4.70-6.10); RED CELL DISTRIBUTION WIDTH 14.6 % (11.5-14.5); WHITE BLOOD COUNT 12.2 X10'3 (4.5-11.0)
--- NOTE | 2020-03-11 06:36 | NUR ---
Reported off to Shaina RN with Abena RN. Patient is awake and alert on room air. In no apparent distress. Call light and items of frequent use within reach.
--- NOTE | 2020-03-11 06:36 | NUR ---
Problems reprioritized. Patient report given, questions answered & plan of care reviewed with Shaina HERRERA.
--- NOTE | 2020-03-11 06:43 | NUR ---
Patient in room [facility]. I have received report from Abena/Cait HERRERA and had the opportunity to ask questions and assume patient care.
[2020-03-11 07:00] VITALS: BP 145/88
[2020-03-11] MEDS: enoxaparin 40mg/0.4ml syringe SUBCUT SCH (07:58)
[2020-03-11] MEDS: lactobacillus rhamnosus 10,000 MMU CELLS/CAPSULE PO SCH (07:58)
[2020-03-11] MEDS: CefTRIAXone/D5W-Rocephin 1gm 50 ML IV SCH (07:58)
[2020-03-11 08:00] VITALS: BP 145/88
[2020-03-11] MEDS: nicotine 14mg patch - 24hr TD SCH (08:01)
--- NOTE | 2020-03-11 09:10 | NUR ---
Dr josue - PAGER ID: [phone] MESSAGE: Jonas Julian#[id number] - Pt wantsto leave AMA, we do not have wound care orders and dressing has not been address. Dr Lang said he can go AMA. Please call me.
--- NOTE | 2020-03-11 09:21 | NUR ---
Pt wants to go AMA- Dr Stacy states let him go. Paged Dr Mast And he advised to let pt know he will come see pt later this am. Dr will address medications, wound care and discharge planning. Pt states he will stay until Dr. Mazariegos comes over to see him.
--- NOTE | 2020-03-11 10:00 | NUR ---
Pt having an anger outburst, threaten to go AMA. pt angry because his family is home and he feels he should be home. Pt upset calling out names, cussing and angry. Pt wants pain meds before he goes. called Dr Rogers, Dr says he can go AMA. Called Dr Mazariegos, he states he will come see pt alicia to [place]. States we are waiting for cultures to DC pt with appropriate antibiotics. Pt states he will wait until he gets meds.
[2020-03-11] MEDS ORDERED: OXYC-150 PO (10:42)
--- NOTE | 2020-03-11 10:45 | NUR ---
pt had walked to the front of the hospital and smoked a cigarette. Security brought pt back to his room. Pt educated on leaving the floor and educted on taking appropriate care of himself and his wound. Pt states he will not leave and will wait until Dr Discharges him.
[2020-03-11 11:00] VITALS: BP_SYST 129; BP_SYST 144; BP_DIAS 70; BP_DIAS 93
--- NOTE | 2020-03-11 11:31 | NUR ---
DM consult re: "new DM, in denial". Pt with no listed PMH of diabetes and no indication of diabetes in physician notes. Current A1c is 6.1% which is not considered diabetes per [employer]. DM education not warranted at this time. Pt on a CHO controlled diet documented with 100% PO intake throughout LOS. Per RN notes pt wanting to leave AMA. Will continue to follow. Addendum: 03/11/20 at [address] Amended: Links added.
[2020-03-11] MEDS ORDERED: SULF1TAB49 PO (11:56)
--- NOTE | 2020-03-11 13:00 | NUR ---
Pt Dc to home with . Pt is A & O X4, pt verbalizes understanding of all DC orders. pt educated on hyper/hypo glycemia issues, S&S and what to do to bring glucose back up. Pt educated on wound care, sick days and finishing up all medications. Pt will follow up with wound care clinic on sunday at 10 to continue care and proper healing of his abscess. Pt is positive MRSA on the wound, Dr Mazariegos aware and Pt aware of the severity of this issue. Pt educated on MRSA and given print out education papers. Pt packed his wound care supplies and was wheeled to the front where picked him up. is an MA and states she will be doing would care without any issues. educated over the phone. Medications e-faxed to [facility].
[2020-03-12] MEDS ORDERED: VANCOMYCIN LEVEL IV ONE (09:30)
== END 2020-03-11 13:00 | disposition home or self-care (01) | DRG 226 ==
LOC: ER 11:45 → ED HOLD 15:35 → SUR 3N 17:09
PROVIDERS: ADMIT Family Medicine; ATTEND Family Medicine
PROC: 0D9Q0ZZ Drainage of Anus, Open Approach (ICD-10-PCS; principal; 2020-03-09 13:16)
DX: K61.0 Anal abscess (principal); L02.215 Cutaneous abscess of perineum; F41.9 Anxiety disorder, unspecified; F17.200 Nicotine dependence, unspecified, uncomplicated
CPT/HCPCS: 36415; 72193; 80053; 80202; 82948; 83036; 83605; 83735; 84145; 85025; 86140; 87040; 87070; 87077; 87081; 87186; 96361; 96372; 99285; A4618; A6407; A6449; A7000; G0378; J0696; J1100; J1170; J1650; J1815; J2001; J2175; J2250; J2270; J2405; J2704; J3370; J7030; J7040; J7120; Q9967

== ENCOUNTER 2020-03-14 13:16 | Emergency (ER) | payer MEDICAID ==
[~2020-03-14] VITALS: Ht 182.9 cm; Wt 104.0 kg
[~2020-03-14 13:16] MED LIST changes: +CLON-372 PO; -CYCL-1 PO; -HYDR-3965 PO; -IBUP-1985 PO; -LEVO750T21 PO; +MULT-227 PO; +OXYC-150 PO; +SULF1TAB49 PO
[2020-03-14 14:01] VITALS: BP 126/76
== END 2020-03-14 15:23 | disposition home or self-care (01) ==
LOC: ER 13:17
DX: K61.0 Anal abscess (principal); G89.29 Other chronic pain; F15.90 Other stimulant use, unspecified, uncomplicated; Z88.0 Allergy status to penicillin; Z88.8 Allergy status to other drugs, medicaments and biological substances; Z79.899 Other long term (current) drug therapy
CPT/HCPCS: 99281; 99282

== ENCOUNTER 2020-03-15 10:16 | Day surgery (SDC) | payer MEDICAID ==
[2020-03-15] MEDS ORDERED: LIDOcaine 2% 5ml jelly ONE (11:00)
== END 2020-03-15 15:10 | disposition home or self-care (01) ==
LOC: WOUND CARE 10:16
PROVIDERS: ATTEND Nurse Practitioner
DX: T81.89XA Other complications of procedures, not elsewhere classified, initial encounter (principal); L98.492 Non-pressure chronic ulcer of skin of other sites with fat layer exposed; G89.29 Other chronic pain; F41.9 Anxiety disorder, unspecified; F15.90 Other stimulant use, unspecified, uncomplicated; F17.200 Nicotine dependence, unspecified, uncomplicated; Z79.899 Other long term (current) drug therapy; Y83.8 Other surgical procedures as the cause of abnormal reaction of the patient, or of later complication, without mention of misadventure at the time of the procedure; Y92.238 Other place in hospital as the place of occurrence of the external cause
CPT/HCPCS: 97597

== ENCOUNTER → 2020-03-25 | Day surgery (SDC) | payer MEDICAID ==
[~2020-03-25] MED LIST changes: +LIDOcaine 2% 5ml jelly ONE
== END | disposition home or self-care (01) ==
LOC: WOUND CARE 13:50
PROVIDERS: ATTEND Nurse Practitioner
DX: T81.89XD Other complications of procedures, not elsewhere classified, subsequent encounter (principal); L98.492 Non-pressure chronic ulcer of skin of other sites with fat layer exposed; G89.29 Other chronic pain; F41.9 Anxiety disorder, unspecified; F15.90 Other stimulant use, unspecified, uncomplicated; F17.200 Nicotine dependence, unspecified, uncomplicated; Z79.899 Other long term (current) drug therapy; Y83.8 Other surgical procedures as the cause of abnormal reaction of the patient, or of later complication, without mention of misadventure at the time of the procedure
CPT/HCPCS: 97597

== ENCOUNTER 2020-04-06 09:29 | Day surgery (SDC) | payer MEDICAID ==
[~2020-04-06 09:29] MED LIST changes: -LIDOcaine 2% 5ml jelly ONE
[2020-04-06] MEDS ORDERED: LIDOcaine 2% 5ml jelly ONE (09:39)
== END 2020-04-06 10:29 | disposition home or self-care (01) ==
LOC: WOUND CARE 09:29
PROVIDERS: ATTEND Nurse Practitioner
DX: T81.89XD Other complications of procedures, not elsewhere classified, subsequent encounter (principal); F41.9 Anxiety disorder, unspecified; F17.200 Nicotine dependence, unspecified, uncomplicated; F15.90 Other stimulant use, unspecified, uncomplicated; Z79.899 Other long term (current) drug therapy; Y83.8 Other surgical procedures as the cause of abnormal reaction of the patient, or of later complication, without mention of misadventure at the time of the procedure
CPT/HCPCS: 97597

== ENCOUNTER 2020-06-26 20:00 | Emergency (ER) | payer MEDICAID ==
[~2020-06-26] VITALS: Ht 182.9 cm; Wt 253.0 kg
[~2020-06-26 20:00] MED LIST changes: -SULF1TAB49 PO
[2020-06-26 20:03] VITALS: BP 135/97
[2020-06-26] MEDS ORDERED: CLIN-97 PO (21:16)
== END 2020-06-26 21:48 | disposition home or self-care (01) ==
LOC: ER 20:01
DX: K02.9 Dental caries, unspecified (principal); K04.7 Periapical abscess without sinus; H92.02 Otalgia, left ear; G89.29 Other chronic pain; F15.90 Other stimulant use, unspecified, uncomplicated; Z72.89 Other problems related to lifestyle; Z88.0 Allergy status to penicillin; Z88.8 Allergy status to other drugs, medicaments and biological substances; Z79.2 Long term (current) use of antibiotics; Z79.899 Other long term (current) drug therapy
CPT/HCPCS: 99283

== ENCOUNTER 2020-07-12 18:33 | Emergency (ER) | payer MEDICAID ==
[~2020-07-12] VITALS: Ht 182.9 cm; Wt 119.5 kg
[~2020-07-12 18:33] MED LIST changes: +CLIN-97 PO
[2020-07-12 18:56] VITALS: BP 138/78
[2020-07-12] MEDS ORDERED: thiamine 100mg/ml 2ml inj. IV ONE (19:15)
[2020-07-12] MEDS ORDERED: folic acid 1mg/0.2ml inj IV ONE (19:15)
[2020-07-12] MEDS ORDERED: normal saline 1000ML IV soln IV ONE (19:15)
[2020-07-12 19:35] LABS: BASOPHILS % (AUTO) 0.6 % (0-1); EOSINOPHILS # (AUTO) 0.1 X10'3 (0-0.9); EOSINOPHILS % (AUTO) 1.4 % (0-6); HEMATOCRIT 40.6 % (42.0-52.0); HEMOGLOBIN 13.6 g/dl (14.0-17.9); LYMPHOCYTES # (AUTO) 2.1 X10'3 (1.1-4.8); LYMPHOCYTES % (AUTO) 31.9 % (21-51); MEAN CORPUSCULAR HEMOGLOBIN 30.1 PG (27.0-31.0); MEAN CORPUSCULAR HGB CONC 33.6 g/dL (33.0-36.5); MEAN CORPUSCULAR VOLUME 89.7 FL (78-98); MEAN PLATELET VOLUME 8.5 FL (7.4-10.4); MONOCYTES # (AUTO) 0.7 X10'3 (0-0.9); MONOCYTES % (AUTO) 11.3 % (2-12); NEUTROPHILS # (AUTO) 3.5 X10'3 (1.8-7.7); NEUTROPHILS % (AUTO) 54.8 % (42-75); PLATELET COUNT 213 X10'3 (140-440); RED BLOOD COUNT 4.52 X10'6 (4.70-6.10); RED CELL DISTRIBUTION WIDTH 15.1 % (11.5-14.5); WHITE BLOOD COUNT 6.4 X10'3 (4.5-11.0)
[2020-07-12 19:49] LABS: ALANINE AMINOTRANSFERASE 67 U/L (12-78); ALBUMIN 3.7 G/DL (3.4-5.0); ALBUMIN/GLOBULIN RATIO 1.1 (1.1-1.5); ALKALINE PHOSPHATASE 89 IU/L (46-116); ANION GAP 12 (8-16); ASPARTATE AMINO TRANSFERASE 40 U/L (10-37); BILIRUBIN,TOTAL 0.3 MG/DL (0.1-1.0); BLOOD UREA NITROGEN 11 MG/DL (7-18); BUN/CREATININE RATIO 10.3 (5.4-32.0); CALCIUM 8.4 MG/DL (8.5-10.1); CHLORIDE 108 MMOL/L (99-107); CREATININE 1.07 MG/DL (0.60-1.10); ETHANOL 0.154 GM/DL (0.0-0.010); GLUCOSE 103 MG/DL (70-104); POTASSIUM 3.4 MMOL/L (3.5-5.1); SODIUM 145 MMOL/L (135-145); TOTAL CARBON DIOXIDE 24.8 MMOL/L (24-32); eGFR > 90 ML/MIN
--- NOTE | 2020-07-12 20:31 | NUR ---
. PT WAS LYING ON HIS BED AND BEGAN SCREAMING OUT ABOUT BEING HUNGRY. BEFORE STAFF WAS ABLE TO OBTAIN FOOD FOR THE PATIENT HE BECAME INCREASINGLY AGGITATED AND STARTED RIPPING OUT HIS IV AND TOOK OFF HIS MASK AND MONITOR. PT THEN BEGAN SCREAMING AND WALKING THROUGH THE ER HALLS AND SECURITY WAS CALLED. AFTER PT WAS RETURNED TO HIS ROOM HE CONTINUED TO SCREAM AND NOT BE COOPERATIVE WITH STAFF. PT WAS PROVIDED A MEAL AND WATER AND BEGAN TO CALM DOWN. ANOTHER RN COMPLETED PT'S D/C INSTRUCTIONS. PT'S GIRLFRIEND WAS CALLED TO COME PICK PT UP
--- NOTE | 2020-07-12 20:34 | NUR ---
DILLON COELHO WAS CALLED WITH THE LOCATION GIVEN OF THE ER ELEVATOR. I ROUNDED THE CORNER TO SEE WHAT THE SITUATION WAS AND SAW THE PATIENT ANGRILY SWINGING HIS ARMS AROUND SCREAMING, "I'M HUNGRY AND NO ONE WILL FUCKING FEED ME" - MULTIPLE STAFF INCLUDING RN'S, TECH, SECURITY, REGISTRATION AND XRAY WERE IN THE AREA. ROSIE MONTEZ CALLED OUT TO ME AND ASKED THAT I CALL [employer] THE PATIENT WAS MAKING THREATS TO HARM THE STAFF - PT IS INTOXICATED AND ADMITTED DRUG USE TO [employer]DS TRANSFER COORDINATOR. - PT THEN BEGAN WALKING BACK TOWARD THE FAST TRACK TREATMENT AREA I LEFT TO CALL [employer] - I RETURNED TO LET STAFF KNOW THAT [employer] HAD BEEN CALLED. MARIJA MADE AWARE APPROX 5 MINS AFTER THE INCIDENT
== END 2020-07-12 20:40 | disposition home or self-care (01) ==
LOC: ER 18:33
DX: F10.129 Alcohol abuse with intoxication, unspecified (principal); F19.10 Other psychoactive substance abuse, uncomplicated; E86.0 Dehydration; G89.29 Other chronic pain; M54.9 Dorsalgia, unspecified; G83.9 Paralytic syndrome, unspecified; F51.4 Sleep terrors [night terrors]; F15.90 Other stimulant use, unspecified, uncomplicated; F14.90 Cocaine use, unspecified, uncomplicated; Z88.0 Allergy status to penicillin; Z88.8 Allergy status to other drugs, medicaments and biological substances; Z79.899 Other long term (current) drug therapy; Y90.0 Blood alcohol level of less than 20 mg/100 ml
CPT/HCPCS: 36415; 80053; 80320; 85025; 99283; J7030; 96360

== ENCOUNTER 2020-07-19 08:22 | Emergency (ER) | payer MEDICAID ==
[~2020-07-19] VITALS: Ht 182.9 cm; Wt 110.5 kg
[2020-07-19 08:25] VITALS: BP 143/89
== END 2020-07-19 09:13 | disposition home or self-care (01) ==
LOC: ER 08:22
DX: Z02.89 Encounter for other administrative examinations (principal); G89.29 Other chronic pain; F12.90 Cannabis use, unspecified, uncomplicated; Z72.89 Other problems related to lifestyle; Z88.0 Allergy status to penicillin; Z88.8 Allergy status to other drugs, medicaments and biological substances; Z79.899 Other long term (current) drug therapy
CPT/HCPCS: 99281

== ENCOUNTER 2020-07-23 21:43 | Emergency (ER) | payer MEDICAID ==
[~2020-07-23] VITALS: Ht 182.9 cm; Wt 118.2 kg
[2020-07-23 21:58] VITALS: BP 138/88
== END 2020-07-23 22:10 | disposition home or self-care (01) ==
LOC: ER 21:44
DX: R51.9 Headache, unspecified (principal); R05 Cough; F17.200 Nicotine dependence, unspecified, uncomplicated; F15.90 Other stimulant use, unspecified, uncomplicated; F14.90 Cocaine use, unspecified, uncomplicated; Z72.89 Other problems related to lifestyle; Z88.0 Allergy status to penicillin; Z88.8 Allergy status to other drugs, medicaments and biological substances; Z79.2 Long term (current) use of antibiotics; Z79.899 Other long term (current) drug therapy
CPT/HCPCS: 99281; 99282

== ENCOUNTER 2020-08-05 07:20 | Emergency (ER) | payer MEDICAID ==
[~2020-08-05] VITALS: Ht 182.9 cm; Wt 122.3 kg
[2020-08-05 07:25] VITALS: BP 137/85
== END 2020-08-05 08:48 | disposition home or self-care (01) ==
LOC: ER 07:21
DX: U07.1 COVID-19 (principal); R07.89 Other chest pain; R51.9 Headache, unspecified; F15.90 Other stimulant use, unspecified, uncomplicated; F14.90 Cocaine use, unspecified, uncomplicated; Z72.89 Other problems related to lifestyle; Z88.0 Allergy status to penicillin; Z88.8 Allergy status to other drugs, medicaments and biological substances; Z79.2 Long term (current) use of antibiotics; Z79.899 Other long term (current) drug therapy
CPT/HCPCS: 71045; 93005; 99283

== ENCOUNTER 2020-09-25 06:58 | Emergency (ER) | payer MEDICAID ==
[~2020-09-25] VITALS: Ht 182.9 cm; Wt 116.5 kg
[2020-09-25 07:02] VITALS: BP 144/84
== END 2020-09-25 07:18 | disposition home or self-care (01) ==
LOC: ER 06:58
DX: R07.81 Pleurodynia (principal); G89.29 Other chronic pain; F15.90 Other stimulant use, unspecified, uncomplicated; F14.90 Cocaine use, unspecified, uncomplicated; Z88.0 Allergy status to penicillin; Z88.8 Allergy status to other drugs, medicaments and biological substances; Z79.899 Other long term (current) drug therapy
CPT/HCPCS: 99281

== ENCOUNTER 2020-11-01 05:21 | Emergency (ER) | payer MEDICAID ==
[~2020-11-01] VITALS: Ht 182.9 cm; Wt 125.0 kg
[2020-11-01 05:27] VITALS: BP 119/83
[2020-11-01] MEDS ORDERED: ibuprofen tablet 400 MG TABLET PO ONE (05:30)
[2020-11-01] MEDS ORDERED: acetaminophen 325mg tablet PO ONE (05:30)
== END 2020-11-01 06:07 | disposition home or self-care (01) ==
LOC: ER 05:22
DX: S93.492A Sprain of other ligament of left ankle, initial encounter (principal); G89.29 Other chronic pain; F15.90 Other stimulant use, unspecified, uncomplicated; F14.90 Cocaine use, unspecified, uncomplicated; Z88.0 Allergy status to penicillin; Z88.8 Allergy status to other drugs, medicaments and biological substances; Z79.899 Other long term (current) drug therapy; X50.1XXA Overexertion from prolonged static or awkward postures, initial encounter; Y93.02 Activity, running; Y92.89 Other specified places as the place of occurrence of the external cause; Y99.8 Other external cause status
CPT/HCPCS: 73610; 73630; 99284

== ENCOUNTER 2022-08-15 14:06 | Emergency (ER) | payer MEDICAID ==
[~2022-08-15] VITALS: Ht 180.3 cm; Wt 115.9 kg
[2022-08-15 14:26] VITALS: BP 111/81
[2022-08-15 16:08] LABS: CLARITY,URINE CLEAR (Clear); COLOR,URINE YELLOW (Yellow); GLUCOSE, URINE NEGATIVE (Neg); KETONES,URINE NEGATIVE (Neg); LEUKOCYTE ESTERASE ,URINE NEGATIVE (Neg); NITRITES, URINE NEGATIVE (Neg); OCCULT BLOOD,URINE TRACE-INTACT (Neg); PROTEIN,URINE NEGATIVE (Neg); UROBILINOGEN,URINE 0.2 E.U/dL (0.2-1.0)
[2022-08-15 16:22] LABS: UA COLLECTION TYPE CLN CATCH MIDSTREAM
[2022-08-15 16:24] LABS: BACTERIA,URINE NONE SEEN /HPF (Neg); RBC,URINE 0-2 /HPF (0-2); SQUAMOUS EPITHELIAL CELL,UR NONE SEEN /LPF (FEW); WBC,URINE NONE SEEN /HPF (0-4)
[2022-08-15] MEDS ORDERED: DOXYCYCLINE 100MG CAPSULE PO STA (16:27)
[2022-08-15] MEDS ORDERED: CefTRIAXone 500MG IM Kit w/LIDOcaine IM ONE (16:30)
[2022-08-15] MEDS ORDERED: HYDROcodone/acetaminophen 5mg/325mg tablet PO ONE (16:30)
[2022-08-15] MEDS ORDERED: HYDR-3965 PO ×2 (16:46→17:16)
[2022-08-15] MEDS ORDERED: DOXY-11 PO (16:46)
== END 2022-08-15 17:27 | disposition home or self-care (01) ==
LOC: EEVIPCON 14:07 → ER 14:07
DX: N45.1 Epididymitis (principal); N50.89 Other specified disorders of the male genital organs; G89.29 Other chronic pain; M54.50 Low back pain, unspecified; F15.20 Other stimulant dependence, uncomplicated; F14.10 Cocaine abuse, uncomplicated; Z88.0 Allergy status to penicillin; Z88.8 Allergy status to other drugs, medicaments and biological substances
CPT/HCPCS: 36415; 76870; 81001; 87491; 87591; 93976; 96372; 99285; J0696

== ENCOUNTER 2023-02-15 20:04 | Emergency (ER) | payer MEDICAID ==
[~2023-02-15] VITALS: Ht 182.9 cm; Wt 113.2 kg
[2023-02-15 20:46] VITALS: BP 172/110; PULSE 84; RESP 18; TEMP 98.8; O2SAT 99
--- NOTE | 2023-02-15 20:49 | NUR ---
Expressed to patient RN order protocols and that he would get taken to xray while he waits for a room in the lobby, patient refused xray.
== END 2023-02-16 00:49 | disposition left against medical advice (07) ==
LOC: ER 20:04
DX: M79.675 Pain in left toe(s) (principal); Z53.21 Procedure and treatment not carried out due to patient leaving prior to being seen by health care provider
CPT/HCPCS: 99281

== ENCOUNTER 2023-02-16 17:11 | Emergency (ER) | payer MEDICAID ==
[~2023-02-16] VITALS: Ht 182.9 cm; Wt 109.6 kg
[2023-02-16 17:23] VITALS: BP 135/84; PULSE 101; RESP 18; TEMP 99.2; O2SAT 98
== END 2023-02-16 19:49 | disposition home or self-care (01) ==
LOC: ER 17:12
DX: M79.675 Pain in left toe(s) (principal); F15.90 Other stimulant use, unspecified, uncomplicated; F14.90 Cocaine use, unspecified, uncomplicated; Z88.0 Allergy status to penicillin; Z88.8 Allergy status to other drugs, medicaments and biological substances; Z79.2 Long term (current) use of antibiotics; Z79.899 Other long term (current) drug therapy
CPT/HCPCS: 99281

== ENCOUNTER 2023-03-21 20:47 | Emergency (ER) | payer MEDICAID ==
[~2023-03-21] VITALS: Ht 182.9 cm; Wt 110.1 kg
[2023-03-21 21:20] VITALS: TEMP 98.2
[2023-03-22 01:43] VITALS: BP 152/134; PULSE 100; RESP 17; O2SAT 99
--- NOTE | 2023-03-22 01:45 | NUR ---
c-spine cleared and c-collar removed by dr soto.
[2023-03-22] MEDS ORDERED: acetaminophen 325mg tablet PO ONE (01:50)
[2023-03-22] MEDS ORDERED: ketorolac trometh inj. 60 MG/2 ML VIAL IM ONE (01:50)
== END 2023-03-22 01:50 | disposition home or self-care (01) ==
LOC: ER 20:47
DX: S16.1XXA Strain of muscle, fascia and tendon at neck level, initial encounter (principal); M25.512 Pain in left shoulder; M54.6 Pain in thoracic spine; G89.29 Other chronic pain; F15.90 Other stimulant use, unspecified, uncomplicated; F11.90 Opioid use, unspecified, uncomplicated; Z72.89 Other problems related to lifestyle; Z88.0 Allergy status to penicillin; Z88.8 Allergy status to other drugs, medicaments and biological substances; Z79.2 Long term (current) use of antibiotics; Z79.899 Other long term (current) drug therapy; W22.11XA Striking against or struck by driver side automobile airbag, initial encounter; Y93.89 Activity, other specified; Y92.89 Other specified places as the place of occurrence of the external cause; Y99.8 Other external cause status
CPT/HCPCS: 70450; 72125; 99284; L0172

== ENCOUNTER 2023-04-23 12:13 | Emergency (ER) | payer MEDICAID ==
[~2023-04-23] VITALS: Ht 182.9 cm; Wt 119.5 kg
[2023-04-23 12:14] VITALS: BP 138/104; PULSE 106; TEMP 97.9; O2SAT 98
--- NOTE | 2023-04-23 14:30 | NUR ---
ATTEMPTED STR CATH, NO SUCCESS.
[2023-04-23] MEDS ORDERED: ketorolac trometh. 30mg/ml inj. IV ONE (16:35)
[2023-04-23] MEDS ORDERED: orphenadrine citrate 60mg/2ml inj. IM ONE (16:35)
[2023-04-23 17:44] VITALS: RESP 18
[2023-04-23] MEDS ORDERED: CYCL-1 PO (18:09)
[2023-04-23] MEDS ORDERED: NAPR-1154 PO (18:10)
== END 2023-04-23 18:30 | disposition home or self-care (01) ==
LOC: ER 12:13
DX: S76.912A Strain of unspecified muscles, fascia and tendons at thigh level, left thigh, initial encounter (principal); X58.XXXA Exposure to other specified factors, initial encounter; Y93.89 Activity, other specified; Y92.89 Other specified places as the place of occurrence of the external cause; Y99.8 Other external cause status
CPT/HCPCS: 72131; 73700; 96372; 96374; 99285; J1885; J2360

== ENCOUNTER 2023-08-11 00:24 | Emergency (ER) | payer MEDICAID ==
[~2023-08-11] VITALS: Ht 180.3 cm; Wt 110.5 kg
[~2023-08-11 00:24] MED LIST changes: +CYCL-1 PO; +NAPR-1154 PO
[2023-08-11 01:40] VITALS: BP 118/102; PULSE 94; RESP 18; TEMP 98; O2SAT 99
== END 2023-08-11 05:54 | disposition left against medical advice (07) ==
LOC: ER 00:25
DX: K64.9 Unspecified hemorrhoids (principal); Z53.21 Procedure and treatment not carried out due to patient leaving prior to being seen by health care provider
CPT/HCPCS: 99281